=== PATIENT | male | born 1965 ===

== ENCOUNTER 2017-02-19 02:24 | Emergency (ER) | payer SELFPAY ==
[~2017-02-19] VITALS: Ht 172.7 cm; Wt 74.4 kg
[2017-02-19] MEDS ORDERED: PENICILLIN-VK500 M1 PO (02:58)
== END 2017-02-19 04:02 | disposition home or self-care (01) ==
LOC: ED 02:24
DX: K04.7 Periapical abscess without sinus (principal); I10 Essential (primary) hypertension